=== PATIENT | male | born 1955 | race Caucasian/White ===

== ENCOUNTER 2017-03-12 09:59 | Emergency (ER) | payer OTHER ==
[2017-03-12 10:12] VITALS: TEMP 99
[2017-03-12] MEDS ORDERED: ACETAMINOPHEN 500 MG TAB PO ONE (10:22)
--- NOTE | 2017-03-12 10:38 | EDPHY ---
H & P Time Seen by Provider: 03/12/17 10:08 HPI/ROS: This patient complains of right orbital/periorbital injury. He explains he was caring 2 bags of groceries last night and he stubbed his toe against a stair falling against the doorjamb striking his right eye against the doorjamb. He reports 6/10 aching pain to the orbital region on the right side reports that he had mild swelling to the affected area until this morning when he blew his nose and had abrupt onset of orbital swelling and increased pain. He notes no other exacerbating factors and has not taken any medication for his pain this morning. The patient drove himself a private vehicle he for evaluation this morning. ROS: Constitutional: No complaints-no fevers HEENT: He has a maxillary region pain on the right face moderate intensity and orbital pain. No nasal injury. No intraoral injury. He did notice any vision changes to the affected eye prior to the onset of swelling. He is now unable to open his right eye due to significant swelling Musculoskeletal: He reports mild right lateral neck pain but no midline pain. No extremity injuries Neuro: No numbness tingling or focal weakness. No confusion. No LOC. He was not dazed from the injury. He has a mild posterior headache that seems to extend from desk musculature that feels like previous tension headaches and is rated 4/10 in intensity. Integumentary: No lacerations or abrasions. 7 point ROS is otherwise negative. Past Medical/Surgical History: Hypothyroid Hypertension Hyper lipidemia Smoking Status: Former smoker Physical Exam: Physical exam: Vital signs are normal General: Patient is in no acute distress. HEENT: The patient has severe right orbital swelling. I am only able to visualize the right ocular globe by manually opening his right eye. The patient has associated tenderness-moderate that extends to the right maxillary region. There is ecchymosis to the periorbital region extends the right maxillary region. Left face is atraumatic. Nose atraumatic. Ears: Clear bilaterally with no hemotympanum. Oropharynx: No dental trauma or malocclusion. No intraoral lacerations. Eyes: Pupils are equal and reactive to light. With attempt to look up patient has sharp pain in the right upper orbit region. However he does not have diplopia. Optic fundi: Unable to adequately visualize the right eye due to difficulty opening the eye. Appreciate no hyphema in the right eye. Neck: Trachea is midline with no stridor. The patient has no midline neck tenderness and retains a full range of motion without increase in pain. He does have mild right paraspinous muscular tenderness extends in the occiput and feels similar to his tension headaches per patient when I palpate the area Lungs: Clear to auscultation bilaterally Cardiac: Regular rate and rhythm no murmur gallop or rub. Chest: Nontender. Back: Nontender Extremities: Atraumatic Neuro: GCS of 15. Cranial nerves II through XII intact. No sensory or motor deficits are appreciated. Initial differential diagnosis: Orbital blowout fracture, periorbital hematoma , ocular injury, minor head injury, neck strain, tension headache Constitutional: Initial Vital Signs Temperature (C) 37.2 C 03/12/17 10:09 Heart Rate 118 H 03/12/17 10:09 Respiratory Rate 20 03/12/17 10:09 Blood Pressure 197/121 H 03/12/17 10:09 O2 Sat (%) 92 03/12/17 10:09 O2 Delivery Mode Room Air Allergies/Adverse Reactions: aspirin Allergy (Severe, Verified 03/12/17 10:09) hives/rash Penicillins Allergy (Severe, Verified 03/12/17 10:09) asthma cephalexin [From Keflex] Allergy (Verified 03/12/17 10:09) Home Medications: Medication Instructions Recorded Albuterol Sulfate [Proventil Hfa] 7 gm IH PRN 02/14/12 Fluticasone/Salmeterol [Advair 60 puffs IH BID 02/14/12 250-50 Diskus] LEVOTHYROXINE SODIUM [Tirosint 75 75 mcg PO DAILY 02/14/12 mcg] Lisinopril [Zestril 20 mg (RX)] 20 mg PO DAILY 02/14/12 Simvastatin Dose Unknown PO HS 02/14/12 Zolpidem Tartrate [Ambien 5MG (RX)] 2.5 mg PO HS PRN 02/14/12 Protonix 01/05/13 Azithromycin [Zithromax] 250 mg PO DAILY #6 tab 03/12/17 MDM/Departure - MDM Imaging Results: Imaging Impressions Face CT 03/12/17 10:22 Impression: 1. Fracture of the inferior wall the right orbit with inferior displacement of fracture components by about 9 mm and extension of the inferior rectus muscle into the defect without entrapment. 2. Large amount of gas is seen over the right side of the face and extending into the neck as detailed above presumably originating from the inferior orbital wall fracture on the right. 3. Incidental probable arachnoid cyst anterior aspect of the right temporal lobe. Findings discussed with David Neri M.D. at 11:40 hour, 03/12/2017. Medications Given: Discontinued Medications Acetaminophen (Tylenol) 1,000 mg PO EDNOW ONE Stop: 03/12/17 10:23 Last Admin: 03/12/17 10:28 Dose: 1,000 mg Azithromycin (Zithromax) 500 mg PO EDNOW ONE PRN Reason: Protocol Stop: 03/12/17 10:46 Last Admin: 03/12/17 11:06 Dose: 500 mg Dexamethasone (Decadron) 10 mg PO EDNOW ONE Stop: 03/12/17 11:44 Last Admin: 03/12/17 11:50 Dose: 10 mg ED Course/Re-evaluation: Tylenol p. o. Decadron p. o. Zithromax p.o. I spoke with Vida Willis on-call for Dr. López-ENT who agrees with treatment plan for this orbital blowout fracture-no nose blowing, Zithromax antibiotic, analgesics, dose of Decadron for significant current swelling and follow up with an week with Dr. López for surgical planning. I spoke with Dr. Osborne-development educator on-call he reports that the patient should follow up with an development educator within a week or so for re-evaluation once the swelling has gone down. Discussion: Patient with orbital blowout fracture but without evidence of concussion or serous ocular injury. Appreciate no evidence of globe rupture, hyphema or other significant abnormalities that exam is currently limited due to severe orbital swelling. Patient understands the treatment plan and will follow up with the [facility] within the 1 week. He understands need to return to the emergency department she developed unbearable pain, significant change in vision or other concerns. - Depart Disposition: Home, Routine, Self-Care Clinical Impression: Orbital floor (blow-out) closed fracture Cervical muscle strain Qualifiers: Encounter type: initial encounter Qualified Code(s): S16.1XXA - Strain of muscle, fascia and tendon at neck level, initial encounter Condition: Good Instructions: Facial Fracture (ED), Cervical Strain (DC) Additional Instructions: Dx: Orbital BLowout Fracture 2. Cervical (neck) muscle strain Plan: Ice 20 min at a time 3 times a day to affected eye for the next couple days Zithromax antibiotic daily for the next 4 days Tylenol and ibuprofen for pain as needed. Do not blow your nose. Call Dr. reeves office-ENT specialist arrange follow-up appointment for sometime within the next week for surgical planning. Also, follow up with the development educator this week for further evaluation of her eye and vision Prescriptions: Azithromycin [Zithromax] 250 mg PO DAILY #6 tab Referrals: LEONARDO LAST [Primary Care Provider] - As per Instructions Bro Osborne MD [Medical Doctor] - As per Instructions Anam López MD [Medical Doctor] - As per Instructions
[2017-03-12] MEDS ORDERED: AZITHROMYCIN 250 MG TAB PO ONE (10:45)
[2017-03-12] MEDS ORDERED: DEXAMETHASONE 4 MG TAB PO ONE (11:43)
[2017-03-12 12:20] VITALS: BP 173/97; PULSE 113; RESP 18; O2SAT 95
== END 2017-03-12 12:18 | disposition home or self-care (01) ==
LOC: CED 09:59
DX: S02.31XA Fracture of orbital floor, right side, initial encounter for closed fracture (principal); S16.1XXA Strain of muscle, fascia and tendon at neck level, initial encounter; W01.198A Fall on same level from slipping, tripping and stumbling with subsequent striking against other object, initial encounter
CPT/HCPCS: 70486-PO